=== PATIENT | female | born 1955 | race Caucasian/White ===

== ENCOUNTER → 2016-12-28 | Outpatient (CLI) | payer OTHER | LOC: FIMAGING 12:04 | PROVIDERS: ATTEND Family Medicine | DX: Z12.31 Encounter for screening mammogram for malignant neoplasm of breast (principal); Z80.3 Family history of malignant neoplasm of breast | CPT/HCPCS: G0202 ==

== ENCOUNTER → 2017-01-04 | Outpatient (CLI) | payer OTHER | LOC: FIMAGING 09:35 | PROVIDERS: ATTEND Family Medicine | DX: Z13.29 Encounter for screening for other suspected endocrine disorder (principal); R92.8 Other abnormal and inconclusive findings on diagnostic imaging of breast | CPT/HCPCS: G0206 ==

== ENCOUNTER 2017-04-28 01:52 | Emergency (ER) | payer OTHER ==
[2017-04-28] MEDS ORDERED: PROPARACAINE 0.5% 15 ML OPHT DROP ONE (02:08)
[2017-04-28 02:15] VITALS: RESP 16
[2017-04-28] MEDS ORDERED: PROPARACAINE 0.5% 15 ML OPHT DROP OP ONE (02:19)
--- NOTE | 2017-04-28 02:41 | EDPHY ---
H & P Time Seen by Provider: 04/28/17 02:07 HPI/ROS: CHIEF COMPLAINT: Moderate to severe pain to the left eye, excessive tearing HISTORY OF PRESENT ILLNESS: This is a 61 year year old female who noted a little bit of discomfort throughout the course of the week left more than right with her contacts. In fact yesterday she took them out early and put them into a little tray. She cleanse them as her usual protocol with 3.5% hydrogen peroxide. However in retrospect she recognizes that she put them in a eye lens container that had the cleaning agent in the. She only discovered this this morning when she went put her contacts in. She has been up for half an hour feeling absolutely fine without any untoward problems with respect to the left eye. She instantly not have had severe sense of discomfort and realize which she had done. She immediately removed the contact lens from the left eye and began to wash her eye with tap water. Fortunately really did not bother her for the rest the morning. In fact she went out some errands and walk in the bright [place]. She started noticing some irritation in the afternoon and somewhat worse into the evening. By evening it was bad enough that she contacted her family physician and started taking some ibuprofen. Her last dose was at approximately bedtime-11:00 p.m.. However, she woke up in the wee hours of the morning approximately half an hour prior to admission and noted moderately worse discomfort and thus came in for evaluation. She arrives holding a tissue continuously dabbing the clear fluid this emanating from the left eye. Contact Lenses yes Eye drops no Eye surgery no Pt queried and denies: prior hx of substance abuse family history of substance abuse or current or prior psychiatric history. [place] Prescription Drug Monitoring Program checked: not in there no activity in last year ROS: Constitutional - no fevers or chills or rigors Eyes - no diplopia, blurred vision, or discharge ENT - no earache, change in hearing, difficulty swallowing, sore throat Smoking Status: Former smoker Physical Exam: General Appearance: Alert, no distress. Afebrile. Normal phonation. No respiratory distress. . Though photosensitive, not truly photophobic. Tolerate the light brought across her cornea in a room with the lights on. Visual acuity performed on the left eye improved as she keep the eye open as he was excessive tearing. This read to be 20/40 -1, left eye. Eyes: Pupils equal and round no pallor or injection. No icterus. Mild edema to the upper eyelid. Slightly pink in puffy. No ptosis. Moderate erythema of bulbar and eyelid conjunctival surface without flare or limbal predominance. No spasm or pain with light. No preauricular nodes. Slit Lamp: Deep, clear quiet anterior chamber without cells or flare. No hyphema or hypopion or ulcer. Fluorescein: No uptake Skin: Warm and dry, no rashes. Psych: Calm. Constitutional: Initial Vital Signs Temperature (C) 36.2 C 04/28/17 01:53 Heart Rate 58 L 04/28/17 01:53 Respiratory Rate 16 04/28/17 01:53 Blood Pressure 131/98 H 04/28/17 01:53 O2 Sat (%) 98 04/28/17 01:53 O2 Delivery Mode Room Air Allergies/Adverse Reactions: Cephalosporins Allergy (Intermediate, Verified 04/28/17 01:57) Hives Home Medications: Medication Instructions Recorded Cytomel 04/28/17 Erythromycin 0.5% 3.5 gm OP QID 5 Days opht.oint 04/28/17 Fluoxetine HCl 04/28/17 Hydrocodone/APAP 5/325 [Ackerman 1 - 2 tab PO Q6H PRN #8 tab 04/28/17 5/325 (*)] Spironolactone 04/28/17 Synthroid 04/28/17 Wellbutrin Xl 04/28/17 Medical Decision Making ED Course/Re-evaluation: The patient reports using a hydrogen peroxide is 3.5%. Our hydrogen peroxide here, which is 3%, tested to have a pH of 3. Her eye tears pH tested to be normal between 7 and 8. Fortunately, the degree of exposure was fairly short this morning and she did immediatly lavaged the eye. As this was some to 12 hr ago we are seeing a chemical reaction and chemical conjunctivitis to the scleral conjunctiva. Fortunately there is no signs of any corneal damage or uptake. As she is not getting much relief with the ibuprofen going forward, she will use Cyclogyl for the next 24 hr and augment with Vicodin p.r.n.. I have cautioned regarding constipation and using Colace. Should she continues to ibuprofen, which have recommended, she should not use it for 2 hr after her aspirin dosing this morning Differential Diagnosis: Diagnostic considerations include, but are not limited to, the following: Corneal laceration, corneal abrasion, Corneal FB, conjunctival foreign body, allergic conjunctivitis, bacterial conjunctivitis, viral conjunctivitis, chemical conjunctivitis - Data Points Medications Given: Discontinued Medications Hydrocodone Bitart/Acetaminophen (Ackerman 5/325mg Prepack#6) 1 btl TAKEHOME EDNOW ONE Stop: 04/28/17 02:46 Last Admin: 04/28/17 02:53 Dose: 1 btl Cyclopentolate HCl (Cyclogyl 1%) 1 drops OP EDNOW ONE Stop: 04/28/17 02:47 Last Admin: 04/28/17 02:53 Dose: 1 drop Erythromycin (Erythromycin 0.5%) 1 usha EACHEYE ONCE ONE Stop: 04/28/17 02:49 Last Admin: 04/28/17 02:54 Dose: 1 usha Proparacaine HCl (Alcaine 0.5%) 1 drops OP EDNOW ONE Stop: 04/28/17 02:20 Last Admin: 04/28/17 02:46 Dose: Not Given Departure - Departure Disposition: Home, Routine, Self-Care Clinical Impression: Acute conjunctivitis of left eye Qualifiers: Acute conjunctivitis type: toxic Qualified Code(s): H10.212 - Acute toxic conjunctivitis, left eye Condition: Good Instructions: Hydrocodone/Acetaminophen (By mouth), Erythromycin (Into the eye) , Cyclopentolate (Into the eye), Chemical Eye Fisher (ED) Additional Instructions: No contact lens wear until released by her textile conservator. This is typically more than a week Follow-up with Ophthalmology on Saturday-see referral or use your own Once home tonight, apply the Cyclogyl to the left eye 1 time only. A minute later your allowed to use the erythromycin ophthalmic ointment, 4 times daily After 10 min if this Cyclogyl has not given you a lot of relief, go ahead and take 1 of the Ackerman Colace for constipation as the Ackerman is predisposing you to constipation Prescriptions: Erythromycin 0.5% 3.5 gm OP QID 5 Days opht.oint Hydrocodone/APAP 5/325 [Ackerman 5/325 (*)] 1 - 2 tab PO Q6H PRN #8 tab PRN Reason: moderate to severe pain
[2017-04-28] MEDS ORDERED: HYDROCOD/APAP 5/325 PREPACK#6 BTL TAKEHOME ONE (02:45)
[2017-04-28] MEDS ORDERED: Cyclopentolate 1% 15 ML OPHT.BTL OP ONE (02:46)
[2017-04-28] MEDS ORDERED: ERYTHROMYCIN 0.5% 1 GM OPHT.OINT EACHEYE ONE (02:48)
[2017-04-28 03:09] VITALS: BP 132/89; PULSE 61; TEMP 97.3; O2SAT 94
== END 2017-04-28 03:00 | disposition home or self-care (01) ==
LOC: CED 01:52
DX: T65.891A Toxic effect of other specified substances, accidental (unintentional), initial encounter (principal); H10.212 Acute toxic conjunctivitis, left eye; Z87.891 Personal history of nicotine dependence

== ENCOUNTER → 2017-07-26 | Outpatient (CLI) | payer OTHER | LOC: CIMAGING 13:22 | PROVIDERS: ATTEND Family Medicine | DX: R91.8 Other nonspecific abnormal finding of lung field (principal) | CPT/HCPCS: 71250-PO ==

== ENCOUNTER → 2018-02-28 | Outpatient (CLI) | payer OTHER | LOC: FIMAGING 08:31 | PROVIDERS: ATTEND Family Medicine | DX: Z12.31 Encounter for screening mammogram for malignant neoplasm of breast (principal); Z80.3 Family history of malignant neoplasm of breast ==